=== PATIENT | female | born 1985 | race Asian ===

== ENCOUNTER → 2017-04-05 | Outpatient (CLI) | payer BC ==
[~2017-04-05] MED LIST: PREN1TAB87 PO
[2017-04-05 13:28] LABS: BASOPHILS % 0.8 % (0.0-2.0); EOSINOPHILS % 0.2 % (0.0-5.0); HEMATOCRIT. 38.1 % (36.0-48.0); LYMPHOCYTES % 22.4 % (20.0-50.0); MEAN CORPUSCULAR HEMOGLOBIN 30.4 pg (28.0-32.0); MEAN CORPUSCULAR VOLUME 88.9 fL (81.0-99.0); MEAN PLATELET VOLUME 7.7 fl (7.4-10.4); MONOCYTES % 6.3 % (2.0-8.0); NEUTROPHILS % 70.3 % (40.0-76.0); PLATELET 296 x1000/uL (130-400); RED BLOOD CELL COUNT 4.29 mill/uL (4.2-5.4)
[2017-04-05 13:29] LABS: CLARITY URINE CLEAR (CLEAR); COLOR URINE YELLOW (YELLOW); KETONES URINE NEGATIVE (NEGATIVE); LEUKOCYTE ESTERASE URINE NEGATIVE (NEGATIVE); NITRITE URINE NEGATIVE (NEGATIVE); OCCULT BLOOD URINE NEGATIVE (NEGATIVE); PROTEIN URINE NEGATIVE (NEGATIVE); SPECIFIC GRAVITY URINE 1.014 (1.005-1.030); UROBILINOGEN URINE 0.2 E.U./dL (0.2-1.0)
[2017-04-05 13:58] LABS: CARBON DIOXIDE 27 mEq/L (21-32); CHLORIDE 102 mEq/L (98-107); HDL CHOLESTEROL 46 mg/dL (40-59); LDL CHOLESTEROL 78 mg/dL (5-100); T4 FREE 1.13 ng/dL (0.76-1.46)
[2017-04-05 14:06] LABS: B-HCG QUANTITATIVE 13010 mIU/mL (<3)
== END | disposition home or self-care (01) ==
LOC: OBSVTOIN 12:56 → INTOOBSV 12:56 → L&D 12:56 → UNDOADMOB 12:56 → EDSTATUS 13:01 → LAB 13:01
PROVIDERS: ATTEND Internal Medicine Endocrinology, Diabetes & Metabolism
DX: O99.280 Endocrine, nutritional and metabolic diseases complicating pregnancy, unspecified trimester (principal); O26.899 Other specified pregnancy related conditions, unspecified trimester; R73.9 Hyperglycemia, unspecified; R29.2 Abnormal reflex; Z3A.00 Weeks of gestation of pregnancy not specified
CPT/HCPCS: 36415; 80053; 80061; 81003; 82306; 83036; 84439; 84443; 84702; 85025; 87086

== ENCOUNTER → 2017-05-02 | Outpatient (CLI) | payer BC ==
[2017-05-02 08:10] LABS: BASOPHILS % 0.7 % (0.0-2.0); EOSINOPHILS % 0.4 % (0.0-5.0); HEMATOCRIT. 34.4 % (36.0-48.0); HEMOGLOBIN. 11.8 g/dL (12.0-16.0); LYMPHOCYTES % 24.4 % (20.0-50.0); MEAN CORPUSCULAR HEMOGLOBIN 30.3 pg (28.0-32.0); MEAN CORPUSCULAR VOLUME 88.6 fL (81.0-99.0); MEAN PLATELET VOLUME 8.4 fl (7.4-10.4); MONOCYTES % 5.8 % (2.0-8.0); NEUTROPHILS % 68.7 % (40.0-76.0); PLATELET 254 x1000/uL (130-400); RED BLOOD CELL COUNT 3.88 mill/uL (4.2-5.4); RED CELL DISTRIBUTION WIDTH 12.4 % (11.6-14.6)
[2017-05-02 09:12] LABS: T4 FREE 1.15 ng/dL (0.76-1.46)
[2017-05-02 14:03] LABS: HEPATITIS B SURFACE ANTIGEN NEGATIVE; RUBELLA IGG 96.9 IU/mL (4.99-10)
[2017-05-05 13:06] LABS: 25-HYDROXY VITAMIN D3 20 ng/mL (.)
[2017-05-06 13:09] LABS: HGB A 97.3 % (94.0-98.0); HGB A2 2.7 % (0.7-3.1); HGB SOLUBILITY Negative (Negative)
== END | disposition home or self-care (01) ==
LOC: LAB 07:36
PROVIDERS: ATTEND Internal Medicine Endocrinology, Diabetes & Metabolism
DX: Z34.00 Encounter for supervision of normal first pregnancy, unspecified trimester (principal); R79.89 Other specified abnormal findings of blood chemistry
CPT/HCPCS: 36415; 82306; 82947; 83021; 83036; 84439; 84443; 85025; 85660; 86592; 86762; 86803; 86850; 86900; 87086; 87186; 87340

== ENCOUNTER → 2017-07-12 | Outpatient (CLI) | payer BC | END | disposition home or self-care (01) | LOC: LAB 15:58 | PROVIDERS: ATTEND Obstetrics & Gynecology Obstetrics | DX: Z36 Encounter for antenatal screening of mother (principal) | CPT/HCPCS: 36415 ==

== ENCOUNTER → 2017-09-04 | Outpatient (CLI) | payer BC ==
[2017-09-04 09:09] LABS: HEMOGLOBIN 10.9 g/dL (12.0-16.0)
== END | disposition home or self-care (01) ==
LOC: LAB 07:49
PROVIDERS: ATTEND Obstetrics & Gynecology Obstetrics
DX: Z13.29 Encounter for screening for other suspected endocrine disorder (principal); D64.9 Anemia, unspecified
CPT/HCPCS: 36415; 82950; 85014; 85018

== ENCOUNTER → 2017-09-25 | Outpatient (CLI) | payer BC | END | disposition home or self-care (01) | LOC: LAB 07:53 | PROVIDERS: ATTEND Obstetrics & Gynecology Obstetrics | DX: Z34.00 Encounter for supervision of normal first pregnancy, unspecified trimester (principal); Z3A.00 Weeks of gestation of pregnancy not specified | CPT/HCPCS: 36415; 82951 ==

== ENCOUNTER 2017-11-18 07:27 | Inpatient (IN) | payer BC ==
[~2017-11-18] VITALS: Ht 157.5 cm; Wt 67.1 kg
[2017-11-18] MEDS ORDERED: DEXT 5%/LR + PITOCIN 20UNITS/L 1,000 ML IV SCH (08:27)
[2017-11-18] MEDS ORDERED: CARBOPROST TROMETHAMINE 250 MCG/ML AMPUL IM PRN (08:30)
[2017-11-18] MEDS ORDERED: METHYLERGONOVINE MALEATE 0.2 MG/ML IM PRN (08:30)
[2017-11-18] MEDS ORDERED: LIDOCAINE HCL 1% 20ML VIAL (Pyxis) INJ INFIL SCH (08:30)
[2017-11-18] MEDS ORDERED: NALOXONE HCL 0.4 MG/ML 1ML VIAL IM PRN (08:30)
[2017-11-18] MEDS ORDERED: MISOPROSTOL 100MCG TABLET VG SCH (08:30)
[2017-11-18] MEDS ORDERED: BUTORPHANOL TARTRATE 2 MG/ML VIAL IV PRN (08:30)
[2017-11-18] MEDS ORDERED: PREN1TAB87 PO (08:46)
[2017-11-18] MEDS: LACTATED RINGERS 1,000 ML IV SCH ×2 (09:04→11:28)
[2017-11-18 09:43] LABS: BASOPHILS % 0.5 % (0.0-2.0); EOSINOPHILS % 0.3 % (0.0-5.0); HEMATOCRIT. 36.6 % (36.0-48.0); HEMOGLOBIN. 12.3 g/dL (12.0-16.0); LYMPHOCYTES % 13.1 % (20.0-50.0); MEAN CORPUSCULAR HEMOGLOBIN 30.1 pg (28.0-32.0); MEAN CORPUSCULAR VOLUME 89.5 fL (81.0-99.0); MEAN PLATELET VOLUME 8.9 fl (7.4-10.4); MONOCYTES % 5.1 % (2.0-8.0); PLATELET 227 x1000/uL (130-400); RED CELL DISTRIBUTION WIDTH 13.4 % (11.6-14.6)
[2017-11-18 09:47] LABS: INR 0.9; PARTIAL THROMBOPLASTIN TIME 28.2 sec (23.4-31.0); PROTHROMBIN TIME 9.7 sec (9.4-11.6)
[2017-11-18 10:12] LABS: CLARITY URINE CLOUDY (CLEAR); COLOR URINE YELLOW (YELLOW); KETONES URINE NEGATIVE (NEGATIVE); LEUKOCYTE ESTERASE URINE NEGATIVE (NEGATIVE); NITRITE URINE NEGATIVE (NEGATIVE); OCCULT BLOOD URINE NEGATIVE (NEGATIVE); PROTEIN URINE NEGATIVE (NEGATIVE); SPECIFIC GRAVITY URINE 1.013 (1.005-1.030); UROBILINOGEN URINE 0.2 E.U./dL (0.2-1.0)
[2017-11-18 10:56] LABS: *AMPHETAMINES SCREEN URINE NEGATIVE (NEGATIVE); *BARBITURATES SCREEN URINE NEGATIVE (NEGATIVE); *BENZODIAZEPINES SCREEN URINE NEGATIVE (NEGATIVE); *COCAINE SCREEN URINE NEGATIVE (NEGATIVE); CANNABINOID URINE SCREEN NEGATIVE (NEGATIVE); METHADONE URINE SCREEN NEGATIVE (NEGATIVE); OPIATES URINE SCREEN NEGATIVE (NEGATIVE); PHENCYCLIDINE URINE SCREEN NEGATIVE (NEGATIVE)
[2017-11-18] MEDS ORDERED: BUPIVACAINE HCL/PF 0.25% (2.5MG/ML) 10ML ONE ×2 (11:34→12:52)
[2017-11-18] MEDS ORDERED: BUPIVACAINE HCL/NS/PF EPIDURAL 100 ML EP ONE (11:34)
[2017-11-18] MEDS ORDERED: FENTANYL CITRATE/PF 50MCG/ML 2ML VIAL ONE (11:46)
[2017-11-18 12:05] LABS: HEPATITIS B SURFACE ANTIGEN NEGATIVE
[2017-11-18] MEDS ORDERED: LANOLIN OINT 0.25 GM TUBE TOP PRN (14:00)
[2017-11-18] MEDS ORDERED: IBUPROFEN 400MG TABLET PO PRN (14:00)
[2017-11-18] MEDS ORDERED: BENZOCAINE/LANOLIN/ALOE VERA SPRAY TOP PRN (14:00)
[2017-11-18] MEDS ORDERED: GLYCERIN/WITCH HAZEL LEAF MEDICATED PAD TOP PRN (14:00)
[2017-11-18] MEDS ORDERED: BUPIVACAINE HCL/PF 0.5% (5MG/ML) 10ML ONE ×2 (15:48→16:40)
[2017-11-18] MEDS ORDERED: MORPHINE SULFATE/PF 1MG/ML 10ML AMP ONE (16:28)
[2017-11-18] MEDS ORDERED: DEXAMETHASONE 4MG/ML 1ML VIAL ONE (16:40)
[2017-11-18] MEDS ORDERED: ONDANSETRON HCL 4MG/2ML VIAL ONE (16:40)
[2017-11-18] MEDS ORDERED: OXYTOCIN 10 UNITS/ML 1ML ONE (16:50)
[2017-11-18] MEDS ORDERED: ONDANSETRON HCL 4MG/2ML VIAL IV PRN (17:00)
[2017-11-18] MEDS ORDERED: LABETALOL 5MG/ML SYR 20 MG/4 ML SYRINGE IV PRN (17:00)
[2017-11-18] MEDS ORDERED: HYDROMORPHONE HCL/PF 2MG/ML CPJ IV PRN (17:00)
[2017-11-18] MEDS ORDERED: MEPERIDINE HCL/PF 25MG/ML CPJ IV PRN (17:00)
[2017-11-18] MEDS: OXYTOCIN 20 UNITS in LACTATED RINGERS 1,000 ML IV SCH ×2 (17:37→22:11)
[2017-11-18 18:10] VITALS: BP 116/64
[2017-11-18 18:40] VITALS: BP 115/66
[2017-11-18 19:30] VITALS: BP 117/65
[2017-11-18 20:00] VITALS: BP 113/55
[2017-11-19] VITALS: BP 112/56
[2017-11-19 04:00] VITALS: BP 108/60
[2017-11-19] MEDS: KETOROLAC 30MG/ML VIAL IV PRN ×2 (05:26→13:55)
[2017-11-19] MEDS: LACTATED RINGERS 1,000 ML IV SCH (05:56)
[2017-11-19 07:04] LABS: BASOPHILS % 0.3 % (0.0-2.0); HEMATOCRIT. 33.3 % (36.0-48.0); HEMOGLOBIN. 10.8 g/dL (12.0-16.0); LYMPHOCYTES % 8.4 % (20.0-50.0); MEAN CORPUSCULAR HEMOGLOBIN 29.2 pg (28.0-32.0); MONOCYTES % 6.2 % (2.0-8.0); NEUTROPHILS % 85.1 % (40.0-76.0); PLATELET 204 x1000/uL (130-400); RED BLOOD CELL COUNT 3.71 mill/uL (4.2-5.4); RED CELL DISTRIBUTION WIDTH 13.2 % (11.6-14.6)
[2017-11-19 07:30] VITALS: BP 109/57
[2017-11-19 12:00] VITALS: BP 103/63
[2017-11-19 17:00] VITALS: BP 124/79
[2017-11-19 20:00] VITALS: BP 110/60
[2017-11-20] VITALS: BP 119/56
[2017-11-20 04:15] VITALS: BP 122/78
[2017-11-20 07:32] VITALS: BP 110/51
[2017-11-20 16:06] VITALS: BP 122/67
[2017-11-20] MEDS: ACETAMINOPHEN WITH CODEINE 300/30MG TABLET PO PRN (18:47)
[2017-11-20 20:45] VITALS: BP 133/61
[2017-11-20 20:50] VITALS: BP 107/57
[2017-11-21 01:00] VITALS: BP 114/63
[2017-11-21 03:25] VITALS: BP 117/72
[2017-11-21] MEDS: ACETAMINOPHEN WITH CODEINE 300/30MG TABLET PO PRN ×2 (08:03→13:51)
[2017-11-21 08:21] VITALS: BP 120/73
[2017-11-21 13:51] VITALS: BP 120/73
== END 2017-11-21 15:15 | disposition home or self-care (01) | DRG 766 ==
LOC: L&D 07:27 → OBSVTOIN 07:27 → 7EST PP/OB 18:17
PROVIDERS: ADMIT Obstetrics & Gynecology Obstetrics; ATTEND Obstetrics & Gynecology Obstetrics
PROC: 10D00Z1 Extraction of Products of Conception, Low, Open Approach (ICD-10-PCS; principal; 2017-11-18 16:50)
DX: O32.4XX0 Maternal care for high head at term, not applicable or unspecified (principal); O69.81X0 Labor and delivery complicated by cord around neck, without compression, not applicable or unspecified; O75.81 Maternal exhaustion complicating labor and delivery; Z3A.37 37 weeks gestation of pregnancy; Z37.0 Single live birth
CPT/HCPCS: 36415; 80305; 81001; 82947; 85025; 85610; 85730; 86592; 86703; 86762; 86850; 86900; 86920; 87340; 88307; 99281; J0595; J1100; J1885; J2274; J2405; J2590; J3010; J3490; J7120; A4315

== ENCOUNTER → 2018-01-08 | Outpatient (CLI) | payer BC | END | disposition home or self-care (01) | LOC: US 14:25 | PROVIDERS: ATTEND Obstetrics & Gynecology Obstetrics | DX: N63.0 Unspecified lump in unspecified breast (principal) | CPT/HCPCS: 76642 ==

== ENCOUNTER → 2018-02-05 | Outpatient (CLI) | payer BC ==
[2018-02-05 09:55] LABS: CLARITY URINE CLEAR (CLEAR); COLOR URINE YELLOW (YELLOW); KETONES URINE NEGATIVE (NEGATIVE); LEUKOCYTE ESTERASE URINE NEGATIVE (NEGATIVE); NITRITE URINE NEGATIVE (NEGATIVE); OCCULT BLOOD URINE NEGATIVE (NEGATIVE); PROTEIN URINE NEGATIVE (NEGATIVE); SPECIFIC GRAVITY URINE 1.021 (1.005-1.030); UROBILINOGEN URINE 0.2 E.U./dL (0.2-1.0)
[2018-02-05 10:08] LABS: HEMATOCRIT. 39.5 % (36.0-48.0); HEMOGLOBIN. 13.2 g/dL (12.0-16.0); LYMPHOCYTES % 34.1 % (20.0-50.0); MEAN CORPUSCULAR VOLUME 86.9 fL (81.0-99.0); MEAN PLATELET VOLUME 8.8 fl (7.4-10.4); MONOCYTES % 9.2 % (2.0-8.0); NEUTROPHILS % 54.7 % (40.0-76.0); PLATELET 257 x1000/uL (130-400); RED BLOOD CELL COUNT 4.54 mill/uL (4.2-5.4); RED CELL DISTRIBUTION WIDTH 12.7 % (11.6-14.6)
[2018-02-05 10:15] LABS: CHLORIDE 102 mEq/L (98-107)
[2018-02-05 10:26] LABS: LDL CHOLESTEROL 81 mg/dL (5-100)
[2018-02-05 10:28] LABS: HDL CHOLESTEROL 50 mg/dL (40-59)
[2018-02-05 10:30] LABS: T4 FREE 1.08 ng/dL (0.76-1.46)
[2018-02-06 13:07] LABS: A/G RATIO 1.3 (0.7-1.7); ALBUMIN 4.4 g/dL (2.9-4.4); ALPHA-1-GLOBULIN 0.2 g/dL (0.0-0.4); ALPHA-2-GLOBULIN 0.6 g/dL (0.4-1.0); BETA GLOBULIN 0.9 g/dL (0.7-1.3); GAMMA GLOBULINS 1.8 g/dL (0.4-1.8); GLOBULIN TOTAL 3.5 g/dL (2.2-3.9); M-SPIKE Not Observed g/dL (Not Observed); TOTAL PROTEIN SERUM 7.9 g/dL (6.0-8.5)
== END | disposition home or self-care (01) ==
LOC: LAB 09:26
PROVIDERS: ATTEND Internal Medicine Endocrinology, Diabetes & Metabolism
DX: Z13.9 Encounter for screening, unspecified (principal); E88.09 Other disorders of plasma-protein metabolism, not elsewhere classified; R73.9 Hyperglycemia, unspecified
CPT/HCPCS: 36415; 80053; 80061; 81003; 82306; 83036; 84155; 84165; 84439; 84443; 85025; 87086